=== PATIENT | female | born 1960 | race Hispanic/Latino ===

== ENCOUNTER → 2021-02-25 | Outpatient (CLI) | payer BC | END | disposition home or self-care (01) | LOC: RAH 09:50 → EDBD 10:30 | PROVIDERS: ATTEND Internal Medicine | DX: N39.0 Urinary tract infection, site not specified (principal) | CPT/HCPCS: 76857 ==

== ENCOUNTER → 2023-07-31 | Outpatient (CLI) | payer BC | END | disposition home or self-care (01) | LOC: RAH 08:00 | PROVIDERS: ATTEND Internal Medicine | DX: K80.20 Calculus of gallbladder without cholecystitis without obstruction (principal); R10.9 Unspecified abdominal pain; K76.0 Fatty (change of) liver, not elsewhere classified; R16.0 Hepatomegaly, not elsewhere classified | CPT/HCPCS: 76700 ==

== ENCOUNTER 2023-08-05 13:41 | Emergency (ER) | payer BC ==
[~2023-08-05] VITALS: Ht 167.6 cm; Wt 130.6 kg
[2023-08-05] MEDS ORDERED: IBUP-2070 PO (15:49)
[2023-08-05 17:00] VITALS: BP 132/74; PULSE 68; RESP 18; O2SAT 99
== END 2023-08-05 17:32 | disposition home or self-care (01) ==
LOC: EDH 13:41
DX: S93.492A Sprain of other ligament of left ankle, initial encounter (principal); I10 Essential (primary) hypertension; E11.9 Type 2 diabetes mellitus without complications; E78.00 Pure hypercholesterolemia, unspecified; Z90.710 Acquired absence of both cervix and uterus; Z88.8 Allergy status to other drugs, medicaments and biological substances; Z98.890 Other specified postprocedural states; X50.1XXA Overexertion from prolonged static or awkward postures, initial encounter; Y93.89 Activity, other specified; Y92.89 Other specified places as the place of occurrence of the external cause; Y99.8 Other external cause status
CPT/HCPCS: 73610

== ENCOUNTER 2024-11-07 15:22 | Emergency (ER) | payer OTHER, MEDICARE ==
[~2024-11-07] VITALS: Ht 167.6 cm; Wt 122.5 kg
[~2024-11-07 15:22] MED LIST: IBUP-2070 PO
--- NOTE | 2024-11-07 15:57 | ERN ---
General Chief Complaint: Mechanical Fall Stated Complaint: FALL Time Seen by MD: 15:23 Source: patient History of Present Illness Initial Comments THIS IS A 63-YEAR-OLD FEMALE COMING IN AFTER SHE HAD A MECHANICAL FALL. PER PATIENT SHE WAS WALKING INTO A [employer]AURANT SLIPPED LANDING ON HER LEFT KNEE AND HITTING HERSELF IN THE LEFT TEMPORAL REGION. PATIENT DID NOT LOSE CONSCIOUSN ESS. Allergies: Coded Allergies: lisinopril (Unverified Allergy, Unknown, 08/05/23) Home Meds Active Scripts Ibuprofen (Ibuprofen) 600 Mg Tablet, 600 MG PO Q6H PRN for PAIN, #30 TAB Prov:CRISTOFER ALVARADO MD 08/05/23 Past Medical History Past Medical History: Diabetes-Type II, High Cholesterol, Hypertension Past Surgical History: Hysterectomy, Cholecystectomy, Other Surgical History Other: GASTRIC BYPASS, CATARCS ROS Dictation CONSTITUTIONAL: NO CHILLS, NO FEVER, NO WEAKNESS, NO DIAPHORESIS, NO MALAISE. HEAD/FACE: SIGNS OF TRAUMA. EENT: NO EYE PAIN, NO BLURRED VISION, NO TEARING, NO DOUBLE VISION, NO EAR PAIN, NO EAR DISCHARGE, NO NOSE PAIN, NO NASAL CONGESTION, NO THROAT PAIN, NO THROAT SWELLING, NO MOUTH PAIN. RESPIRATORY: NO COUGH, NO ORTHOPNEA, NO SOB, NO STRIDOR, NO WHEEZING. CARDIOVASCULAR: NO CHEST PAIN, NO EDEMA, NO PALPITATIONS, NO SYNCOPE. GASTROINTESTINAL/ABDOMINAL: NO ABDOMINAL PAIN, NO CONSTIPATION, NO DIARRHEA, NO NAUSEA, NO VOMITING. GENITOURINARY: NO ABNORMAL DISCHARGE, NO DYSURIA, NO FREQUENT URINATION, NO HEMATURIA. NO COMPLAINTS OF PAIN IN THE GENITALS. MUSCULOSKELETAL: NO BACK PAIN, NO GOUT, NO JOINT PAIN, NO JOINT SWELLING, NO MUSCLE PAIN, NO MUSCLE STIFFNESS, NO NECK PAIN. INTEGUMENTARY: NO CHANGE IN COLOR, NO CHANGE IN HAIR/NAILS, NO DRYNESS, NO LESION, NO LUMPS, NO RASH. NEUROLOGICAL/PSYCH: NO ANXIETY, NOT DEPRESSED, NO EMOTIONAL PROBLEM, NO HEADACHE, NO NUMBNESS, NO PRE-EXISTING DEFICIT, NO HISTORY OF SEIZURES, NO TREMORS, NO WEAKNESS. HEMATOLOGIC/LYMPHATIC: NOT ANEMIC, NO HISTORY OF BLOOD CLOTS, NO APPARENT BLEEDING, NO BRUISING, GLANDS NOT SWOLLEN. ALL SYSTEMS NEGATIVE, EXCEPT NOTED. Physical Exam Physical Exam Dictation VITAL SIGNS: REVIEWED. GENERAL APPEARANCE: ALERT, ORIENTED X3, NO ACUTE DISTRESS, OBESE. HEAD AND FACE: -TRAUMATIC. EYES: PERRL, PINK CONJUNCTIVAS, EYELID NO TRAUMA, ANTERIOR CHAMBER CLEAR. EARS: PINNAS INTACT AND NO SIGNS OF TRAUMA OR ERYTHEMA. EAR CANALS CLEAR AND NO DISCHARGE. TMS NO ERYTHEMA. NOSE: NO DISCHARGE, NO BLEEDING. OROPHARYNX: MOUTH NORMAL, TEETH NO CARIES, TONGUE PINK. PHARYNX CLEAR, NO ERYT LEYDI. TONSILS NO EXUDATES, NO ABSCESSES NOTED. MUCOUS MEMBRANE MOIST. NECK: SUPPLE, NON-TENDER, NO THYROMEGALY, NO MASSES, NO JVD, NO BRUITS. BREAST: DEFERRED. CHEST: NO TENDERNESS, NO CREPITUS, NO PARADOXICAL MOVEMENT, NO RETRACTIONS. LUNGS: CLEAR, WELL-VENTILATED, SYMMETRIC, NO RALES, NO WHEEZING, NO RHONCHI, NO STRIDOR, GOOD BREATH SOUNDS BILATERALLY. HEART: REGULAR RATE, REGULAR RHYTHM, NO MURMUR, NO GALLOPS. VASCULAR: NO PERIPHERAL EDEMA. ABDOMEN: SOFT, POSITIVE BOWEL SOUNDS, NONDISTENDED, NO GUARDING, NONTENDER, NO REBOUND, NO MASSES NO HEPATOMEGALY, NO SPLENOMEGALY, NO NUNEZ'S SIGN, NO HERNIAS. RECTAL: DEFERRED. GENITAL: DEFERRED. NEUROLOGICAL: NORMAL SPEECH, GROSS MOTOR FUNCTION INTACT, GROSS SENSORY FUNCTION INTACT. MUSCULOSKELETAL: NECK NONTENDER, FULL RANGE OF MOTION, BACK NONTENDER, FULL RANGE OF MOTION. EXTREMITIES: NONTENDER, FULL RANGE OF MOTION. LEFT KNEE PAIN, LEFT KNEE ECCHYMOSIS SKIN: COLOR PINK, DRY, NO TURGOR, NO RASH, NO LACERATIONS, NO ABRASIONS, NO CONTUSIONS. LYMPHATICS: DEFERRED. Results Laboratory and Microbiology Labs Reviewed?: Yes EKG/XRAY/US/CT/MRI X-RAY Comment X-RAY KNEE LEFT- SUPRAPATELLAR FAT PAD CT Scan Comment IMAGING REPORT Signed PATIENT: THERON FAY MR#: [id number] : 1960 SEX: F AGE: 63 LOCATION: [facility] ORDER 1550 STATUS: REG ER REPORT#: [id number] SERVICE [id number] REASON: FALL ORDERING PHYSICIAN: OLLIE ORTIZ MD PROCEDURE: HEAD WO - CT HEAD/BRAIN W/O CONTRAST EXAM: CT Head Without IV contrast. CLINICAL HISTORY: FALL TECHNIQUE: Axial computed tomography images of the head/brain without intravenous contrast. COMPARISON: None provided. FINDINGS: BRAIN: No evidence of acute hemorrhage. No mass lesion. No CT evidence for acute territorial infarct. No midline shift or extra-axial collections. VENTRICLES: No hydrocephalus. ORBITS: The orbits are unremarkable. SINUSES AND MASTOIDS: The paranasal sinuses and mastoid air cells are clear. BONES: No fracture. SOFT TISSUES: Unremarkable. IMPRESSION: No acute intracranial abnormality. /[place] DICTATED BY: BLADIMIR CAST MD DATE: 11/07/241838 ELECTRONICALLY SIGNED BY: BLADIMIR CAST MD DATE: 11/07/241838 [facility] MDM: DIFFERENTIAL DIAGNOSIS: FALL, CONTUSION, KNEE STRAIN, KNEE CONTUSION, RATIONALE: TESTS CONSIDERED AND ORDERED SECONDARY TO SHARED DECISION MAKING INCLUDE: PREVIOUS OUTSIDE RECORDS REVIEWED: OLD ER VISITS. RISK OF COMPLICATION AND/OR MORBIDITY OR MORTALITY OF PATIENT MANAGEMENT: NONE MEDICATIONS-PER MEDICATION RECONCILIATION NEED FOR HOSPITALIZATION: PATIENT DOES NOT MEET CRITERIA FOR HOSPITALIZATION. PATIENT IS A 63-YEAR-OLD FEMALE COMING IN TO BE EVALUATED AFTER SHE HAD A FALL EARLIER TODAY. PATIENT WAS COMPLAINING OF LEFT KNEE DISCOMFORT AND LEFT TEMPORAL DISCOMFORT. NO LOSS OF CONSCIOUSNESS. X-RAY AND CT DID NOT DISCLOSE ACUTE FINDINGS. PATIENT WILL BE DISCHARGED IN STABLE CONDITION WITH THE DOING SO IS A FALL. KNEE IMMOBILIZER WILL BE PLACED. I DID ADVISED HER APPROPRIATE FOLLOW UP WITH PCP IN 1-2 DAYS ED Course Orders Procedure Category Date Status Time Ct Head/Brain W/O CT 11/07/24 Resulted Contrast 15:49 Knee 3vws Lt RAD 11/07/24 Taken 15:49 Tetanus,Diphtheria PHA 11/07/24 Complete Tox [Adult] (Diphther 16:30 Acetaminophen 500mg PHA 11/07/24 Complete Tab (Tylenol 500mg T 16:24 Current Medications Medications (Trade) Dose Ordered Sig/Dave Route PRN Reason Start Time Stop Time Status Last Admin Dose Admin Acetaminophen (TYLenol 500MG TAB) 500 mg ONCE STAT PO 11/07/24 16:24 11/07/24 16:26 DC 11/07/24 16:30 Tetanus/ Diphtheria Toxoids Adsorbed (DiphthERIA-teTANUS TOXOID [ADULT]/ DECAVAC) 0.5 ml ONCE ONCE IM 11/07/24 16:30 11/07/24 16:31 DC Vital Signs Date Time Temp Pulse Resp B/P (MAP) Pulse Ox O2 Delivery O2 Flow Rate FiO2 11/07/24 16:12 67 18 141/57 97 Room Air* 0 21 11/07/24 15:39 98.4 75 18 99/56 96 Room Air DX & DISP Disposition: Discharge Departure Impression: Primary Impression: Fall Additional Impression: Contusion of knee, left Condition: Stable Additional Instructions: FOLLOW-UP WITH PRIMARY CARE PROVIDER IN 1 TO 2 DAYS. TAKE MEDICATIONS DIRECTED HERE IN THE EMERGENCY ROOM. OKAY TO CONTINUE HOME MEDICATIONS UNLESS OTHERWISE DISCUSSED DURING YOUR VISIT IN THE EMERGENCY ROOM TODAY. RETURN TO YOUR NEAREST EMERGENCY ROOM IF SYMPTOMS WORSEN OR IF THERE IS NO IMPROVEMENT. CALL 911 IF YOU NEED IMMEDIATE ASSISTANCE. TAKE TYLENOL [id number] NEEDED AND IF NO CONTRAINDICATIONS ARE PRESENT. INCREASE ORAL HYDRATION. A WOUND CULTURE OR URINE CULTURE WAS ORDERED HERE IN THE EMERGENCY ROOM DEPARTMENT PLEASE FOLLOW-UP WITH PRIMARY CARE PROVIDER AND ADVISE THEM TO GET REPORTS FROM OUR FACILITY. IF YOU HAD ANY ELIZABETH WRAP/SPLINTS THAT WERE APPLIED HERE, PLEASE DO NOT REMOVE THEM UNTIL YOU SEE YOUR PRIMARY CARE OR SPECIALTY. REFERRALS: Referrals: TENISHA PALOMARES MD (PCP) Time of Disposition: 17:58 OLLIE ORTIZ MD Nov 07, 2024 15:57
--- NOTE | 2024-11-07 16:25 | NUR ---
ICE PACK PLACED TO LEFT KNEE
--- NOTE | 2024-11-07 16:45 | NUR ---
PTS WOUND TO LET EYEBROW WAS LEANED, ALREADY ADHERENT AND NOT BLEEDING. PT REFUSED TETANUS SHE HAD RECEIVED VACCINE IN HER PCP'S OFFICE LAST WEEK
--- NOTE | 2024-11-07 17:40 | HMCIMG ---
EXAM: CT Head Without IV contrast. CLINICAL HISTORY: FALL TECHNIQUE: Axial computed tomography images of the head/brain without intravenous contrast. COMPARISON: None provided. FINDINGS: BRAIN: No evidence of acute hemorrhage. No mass lesion. No CT evidence for acute territorial infarct. No midline shift or extra-axial collections. VENTRICLES: No hydrocephalus. ORBITS: The orbits are unremarkable. SINUSES AND MASTOIDS: The paranasal sinuses and mastoid air cells are clear. BONES: No fracture. SOFT TISSUES: Unremarkable. IMPRESSION: No acute intracranial abnormality. /[place]
--- NOTE | 2024-11-07 17:57 | HMCIMG ---
EXAM: CR Left Knee, 3 View. CLINICAL HISTORY: FALL COMPARISON: None provided. FINDINGS: There is medial compartment predominant moderate to severe tricompartmental left knee joint osteoarthritis. There is no displaced fracture or evidence of periostitis. There is a knee joint effusion. There is mild to moderate infrapatellar bursitis. IMPRESSION: 1. No acute osseous injury. 2. Moderate to severe tricompartmental knee osteoarthritis, predominantly in the medial compartment. 3. Knee joint effusion and mild to moderate infrapatellar bursitis. /[place]
[2024-11-07 18:00] VITALS: BP 145/61; PULSE 65; RESP 18; TEMP 98.4; O2SAT 96
--- NOTE | 2024-11-07 18:10 | NUR ---
KNEE IMMOBILIZER APPLIED TO LEFT KNEE
== END 2024-11-07 18:57 | disposition home or self-care (01) ==
LOC: EDH 15:22
DX: S80.02XA Contusion of left knee, initial encounter (principal); E11.9 Type 2 diabetes mellitus without complications; E78.00 Pure hypercholesterolemia, unspecified; I10 Essential (primary) hypertension; Z88.8 Allergy status to other drugs, medicaments and biological substances; Z90.49 Acquired absence of other specified parts of digestive tract; Z90.710 Acquired absence of both cervix and uterus; Z98.84 Bariatric surgery status; W01.0XXA Fall on same level from slipping, tripping and stumbling without subsequent striking against object, initial encounter; Y93.01 Activity, walking, marching and hiking; Y92.89 Other specified places as the place of occurrence of the external cause; Y99.8 Other external cause status
CPT/HCPCS: 70450; 73562; 90714; 99284